=== PATIENT | female | born 1975 | race Caucasian/White ===

== ENCOUNTER 2018-06-02 22:18 | Emergency (ER) | payer MEDICAID ==
[~2018-06-02] VITALS: Ht 157.5 cm; Wt 88.5 kg
[2018-06-02 22:23] VITALS: BP 103/74
--- NOTE | 2018-06-02 22:25 | NUR ---
PT AMBULATORY TO ER LOBBY W/ STEADY GAIT IN STABLE CONDITION.
--- NOTE | 2018-06-02 23:42 | NUR ---
ASSUMED CARE OF PT AT THIS TIME. C/O SUDDEN ONSET BI-LATERAL UPPER/LOWER EXTREMITY NUMBNESS/TINGLING X 1 DAY. CMS INTACT AT THIS TIME. AAOX4 WITH EVEN AND STEADY GAIT; PATIENT STATES PAIN OF 0/10; VSS; PATIENT POSITIONED FOR COMFORT; HOB ELEVATED; BEDRAILS UP X2; BED DOWN. ER MD MADE AWARE OF PT STATUS. WILL CONTINUE TO MONITOR.
--- NOTE | 2018-06-02 23:42 | NUR ---
PT AMBULATED TO ED BED 12.
[2018-06-03 00:55] VITALS: BP 116/71
--- NOTE | 2018-06-03 00:55 | NUR ---
Patient discharged with v/s stable. Written and verbal after care instructions given and explained. Patient verbalized understanding. Ambulatory with steady gait. All questions addressed prior to discharge. Advised to follow up with PMD.
== END 2018-06-03 00:55 | disposition home or self-care (01) ==
LOC: MED 22:18
DX: F41.9 Anxiety disorder, unspecified (principal)
CPT/HCPCS: 99283; 99284